=== PATIENT | male | born 1945 | race Caucasian/White ===

== ENCOUNTER 2017-07-12 08:20 | Day surgery (SDC) | payer OTHER ==
[2017-07-11 14:50] VITALS: BMI 26.6
[2017-07-12] MEDS ORDERED: PROPOFOL 20 ML ONE ×2 (09:32→11:50)
[2017-07-12] MEDS ORDERED: MIDAZOLAM HCL 2 MG/2 ML SINGLE DOSE VIAL ONE (09:32)
[2017-07-12] MEDS ORDERED: oxyCODONE HCL 5 MG TABLET PO PRN ×4 (09:44→12:51)
[2017-07-12] MEDS ORDERED: ONDANSETRON 4 MG/2 ML VIAL IVPUSH PRN (09:44)
[2017-07-12] MEDS ORDERED: BUPIVACAINE HCL/PF 2.5 MG/ML - 30 ML VIAL IJ ONE (10:19)
[2017-07-12] MEDS ORDERED: LIDOCAINE HCL 2% (20ML MULTI-DOSE VIAL) NR ONE (10:41)
[2017-07-12 12:29] VITALS: TEMP 98.3
[2017-07-12] MEDS ORDERED: oxyCODONE HCL 5 MG TABLET ONE (12:40)
[2017-07-12] MEDS ORDERED: ONDANSETRON 4 MG/2 ML VIAL IVPB PRN (12:51)
--- NOTE | 2017-07-12 12:51 | OP ---
Operative Note - Note: Operative Date: 07/12/17 Pre-Operative Diagnosis: Proximal phalanx fracture right long finger Operation: Closed reduction with K-wire fixation of right long finger proximal phalanx fracture Implants: K-wires Post-Operative Diagnosis: Same as Pre-op Surgeon: Fernando Novak Anesthesia: Local, MAC Operative Report Dictated: Yes
[2017-07-12] MEDS ORDERED: LACTATED RINGERS SOLUTION 1,000 ML IV SCH (13:00)
[2017-07-12 13:02] VITALS: BP 181/84; PULSE 61
--- NOTE | 2017-07-12 13:36 | OP ---
DATE OF OPERATION: 07/12/2017 PROCEDURE: Right long finger proximal phalanx closed reduction with percutaneous pin fixation of transverse midshaft fracture. ATTENDING SURGEON: Fernando Novak MD PRN OCCUPATIONAL THERAPIST: None. CONSULTATION: Intraoperative consultation by Dr. Jan Klein is obtained. ANESTHESIA: Monitored sedation a total of 2.5 mL of 2% lidocaine plain is given as a digital block preoperatively. DESCRIPTION OF PROCEDURE: The patient is seen in the holding area. The appropriate finger is marked in preparation. He is counseled on all risks, benefits, and alternatives as well as limitations of the procedure. He understands and agrees to proceed. He is brought to the operating room. A gram of Ancef was given preoperatively. The sequential compression stockings are applied. The hand is prepped and draped in standard surgical fashion. No tourniquet is used for this case. The time-out is called. The patient, procedure, side, site, and appropriate digit are verified. Using C-arm fluoroscopy with the patient properly protected by the lead, the fracture is identified. It is volarly angulated, and manual reduction is able to be performed. With this, a stabilizing 1.62-mm K-wire is drilled longitudinally down the shaft of the fracture to maintain reduction. With this reduction maintained, two separate crossing K-wires of the same size are driven from the distal proximally to maintain the reduction. Though anatomic reduction is able to be achieved, the second wire fractured at the point where it crossed the first wire. This fractured fragment of K-wire remains entirely intramedullary not crossing any cortical surfaces or into any joint spaces. It is also not crossing the fracture site. The proximal segment of this wire is removed. A separate wire is then advanced to hold the reduction from the opposite side of the finger crossing in an X fashion at the fracture site. This proves as a stable reduction where the finger is able to be ranged at the PIP joint and the MCP joint without limitation but good, stable reduction at the fracture site. Because of the retained K-wire, intraoperative consult was obtained by Dr. Jan Klein who comes into the operating room and assesses the C-arm picture as well as the patient's hand. It is his assessment that the reduction is acceptable and that there is no indication to attempt removal of the retained fragment of K-wire as it is sterilely within the intramedullary cavity and not clinically relevant. The two externalized remaining K-wires are cut and bent. The tips are covered with Xeroform. The Kerlix Nicolas is applied. An AlumaFoam splint is placed with the finger in an anatomic position. The PIP joint is able to be brought to 0 degrees without difficulty. The patient is awoken from anesthesia. Fingertip is pink and viable. Transferred to the recovery room without complication. [place] [id number]
== END 2017-07-12 13:33 | disposition home or self-care (01) ==
LOC: FASU 08:20 → EDSEX 10:30 → FASU 13:33
PROVIDERS: ATTEND Plastic Surgery
PROC: 0PST34Z Reposition Right Finger Phalanx with Internal Fixation Device, Percutaneous Approach (ICD-10-PCS; principal; 2017-07-12 11:08)
DX: S62.622A Displaced fracture of middle phalanx of right middle finger, initial encounter for closed fracture (principal); X58.XXXA Exposure to other specified factors, initial encounter; Y93.9 Activity, unspecified; Y92.9 Unspecified place or not applicable
CPT/HCPCS: 73140-TC-RT